=== PATIENT | female | born 1950 | race Caucasian/White ===

== ENCOUNTER 2019-05-10 13:14 | Emergency (ER) | payer MEDICARE ==
[2019-05-10] MEDS ORDERED: ASPIRIN 81 MG CHEWABLE TABLET PO ONE ×2 (13:29→13:30)
[2019-05-10] MEDS ORDERED: NITROGLYCERIN/D5W 50 MG/250 ML ML IV SCH (13:30)
[2019-05-10 13:41] LABS: ABSOLUTE NEUTROPHIL COUNT 6.41; BASO % 0.6 % (0-6); EOS % 1.6 % (0-6); GRAN % 71.1 % (47-80); HEMATOCRIT 46.2 % (35.0-47.0); HEMOGLOBIN 15.9 gm/dl (11.6-16.0); LYMPH % 15.1 % (16-45); MEAN CORPUSCULAR HEMOGLOBIN 33.1 pg (27-33); MEAN CORPUSCULAR HGB CONC 34.4 g/dl (32-36); MONO % 11.6 % (0-9); PLATELET COUNT 345 K/uL (130-400); RED BLOOD COUNT 4.81 M/uL (3.80-5.40); RED CELL DISTRIBUTION WIDTH 14.1 % (11.5-14.5)
[2019-05-10] MEDS ORDERED: HEPARIN SODIUM 1000 UNIT/1 ML 10ML VIAL IVP ONE (13:42)
--- NOTE | 2019-05-10 13:42 | Emergency Department Record ---
History of Present Illness - General Chief complaint: Pain Stated complaint: SHOULDER AND ARM PAIN Time Seen by Provider: 05/10/19 13:25 Mode of Arrival: Ambulatory - History of Present Illness Initial comments: chest pain which started 12:30 pm today one hour ago and she had some intermittent pain at 4 am but the pain went away with ultram. PMH DM, hypertension and RA and no bleeding disorders and no previous cardiac disease Onset/Timin -: Hour(s) Location: Left, Arm, Shoulder History of Same: No Radiation: None Severity scale (1-10): >10 - Related Data Home Medications Medication Instructions Recorded Confirmed Last Taken Carvedilol [Coreg] 6.25 mg PO BID 05/10/19 05/10/19 1 Day Ago ~05/09/19 Celecoxib [Celebrex] 200 mg PO BID 05/10/19 05/10/19 1 Day Ago ~05/09/19 Cholecalciferol (Vitamin D3) 5,000 unit PO DAILY 05/10/19 05/10/19 1 Day Ago [Vitamin D3] ~05/09/19 Cyanocobalamin (Vitamin B-12) 2,500 mcg PO DAILY 05/10/19 05/10/19 1 Day Ago [Vitamin B12] ~05/09/19 Duloxetine HCl [Cymbalta] 60 mg PO DAILY 05/10/19 05/10/19 1 Day Ago ~05/09/19 Losartan Potassium [Cozaar] 25 mg PO DAILY 05/10/19 05/10/19 1 Day Ago ~05/09/19 Metformin ER HCl [Glucophage Xr] 250 mg PO DAILY 05/10/19 05/10/19 1 Day Ago ~05/09/19 Methotrexate Sodium [Trexall] 20 mg PO WEEKLY 05/10/19 05/10/19 1 Day Ago ~05/09/19 Pyridoxine HCl (Vitamin B6) 100 mg PO DAILY 05/10/19 05/10/19 1 Day Ago [Vitamin B-6] ~05/09/19 Semaglutide [Ozempic] 1 mg SQ WEEKLY 05/10/19 05/10/19 1 Day Ago ~05/09/19 Tramadol HCl [Ultram] 50 mg PO QID PRN 05/10/19 05/10/19 1 Day Ago ~05/09/19 Allergies Allergy/AdvReac Type Severity Reaction Status Date / Time Penicillins Allergy RASH Verified 05/10/19 13:34 Travel Screening - Travel/Exposure Within Last 30 Days Have you traveled within the last 30 days?: No - Travel/Exposure Within Last Year Have you traveled outside the [place] in the last year?: No - Additonal Travel Details Have you been exposed to anyone with a communicable illness?: No - Travel Symptoms Symptom Screening: None Review of Systems Reviewed: No additional complaints except as noted below Constitutional: Reports: As per HPI. Denies: Chills, Fever, Malaise, Night sweats, Weakness, Weight change Eyes: Reports: As per HPI. Denies: Eye discharge, Eye pain, Photophobia, Vision change ENT: Reports: As per HPI. Denies: Congestion, Dental pain, Ear pain, Epistaxis, Hearing loss, Throat pain Respiratory: Reports: As per HPI. Denies: Cough, Dyspnea, Hemoptysis, Stridor, Wheezes Cardiovascular: Reports: As per HPI, Chest pain. Denies: Arrhythmia, Dyspnea on exertion, Edema, Murmurs, Orthopnea, Palpitations, Paroxysmal nocturnal dyspnea, Rheumatic Fever, Syncope Endocrine: Reports: As per HPI. Denies: Fatigue, Heat or cold intolerance, Polydipsia, Polyuria Gastrointestinal: Reports: As per HPI. Denies: Abdominal pain, Constipation, Diarrhea, Hematemesis, Hematochezia, Melena, Nausea, Vomiting Genitourinary: Reports: As per HPI. Denies: Abnormal menses, Discharge, Dys pareunia, Dysuria, Frequency, Hematuria, Incontinence, Retention, Urgency Musculoskeletal: Reports: As per HPI. Denies: Arthralgia, Back pain, Gout, Joint swelling, Myalgia, Neck pain Skin: Reports: As per HPI. Denies: Bruising, Change in color, Change in hair/nails, Lesions, Pruritus, Rash Neurological: Reports: As per HPI. Denies: Abnormal gait, Confusion, Headache, Numbness, Paresthesias, Seizure, Tingling, Tremors, Vertigo, Weakness Psychiatric: Reports: As per HPI. Denies: Anxiety, Auditory hallucinations, Depression, Homicidal thoughts, Suicidal thoughts, Visual hallucinations Hematological/Lymphatic: Reports: As per HPI. Denies: Anemia, Blood Clots, Easy bleeding, Easy bruising, Swollen glands Past Medical History - SOCIAL HISTORY Smoking Status: Current every day smoker Alcohol Use: None Drug Use: None - RESPIRATORY Hx Respiratory Disorders: No - CARDIOVASCULAR Hx Cardio Disorders: Yes Comment:: 1980 had work up for CP - NEURO Hx Neuro Disorders: No - GI Hx GI Disorders: Yes Hx Irritable Bowel: Yes (stressed nervous stomache) - Hx Genitourinary Disorders: Yes Comment:: stress incontinence - ENDOCRINE Hx Diabetes: Yes (NIDDM) Hx Thyroid Disease: No - MUSCULOSKELETAL Hx Musculoskeletal Disorders: Yes Hx Arthritis: Yes (RA) - PSYCH Hx Psych Problems: Yes Hx Anxiety: Yes - HEMATOLOGY/ONCOLOGY Hx Hematology/Oncology Disorders: No Hx Anemia: No Hx Cancer: No Family Medical History Any Significant Family History?: Yes Hx Heart Disease: Father Physical Exam - General General Appearance: Alert, Oriented x3, Cooperative, No acute distress - Head Head exam: Normal inspection - Eye Eye exam: Normal appearance, PERRL Pupils: Normal accommodation - ENT ENT exam: Normal exam, Mucous membranes moist, Normal external ear exam, Normal orophraynx, TM's normal bilaterally Ear exam: Normal external inspection. negative: External canal tenderness Nasal Exam: Normal inspection. negative: Discharge, Sinus tenderness Mouth exam: Normal external inspection, Tongue normal Teeth exam: Normal inspection. negative: Dental caries Throat exam: Normal inspection. negative: Tonsillar erythema, Tonsillar exudate - Neck Neck exam: Normal inspection, Full ROM. negative: Tenderness - Respiratory Respiratory exam: Normal lung sounds bilaterally. negative: Respiratory distress - Cardiovascular Cardiovascular Exam: Regular rate, Normal rhythm, Normal heart sounds - GI/Abdominal GI/Abdominal exam: Soft, Normal bowel sounds. negative: Tenderness - Rectal Rectal exam: Deferred - exam: Deferred - Extremities Extremities exam: Normal inspection, Full ROM, Normal capillary refill. negative: Tenderness - Back Back exam: Reports: Normal inspection, Full ROM. Denies: Muscle spasm, Rash noted, Tenderness - Neurological Neurological exam: Alert, Normal gait, Oriented X3, Reflexes normal - Psychiatric Psychiatric exam: Normal affect, Normal mood - Skin Skin exam: Dry, Intact, Normal color, Warm Course Vital Signs 05/10/19 13:18 Temperature 97.4 F L Pulse Rate 71 Respiratory 20 Rate Blood Pressure 183/100 Pulse Ox 100 - Reevaluation(s) Reevaluation #1: discussed case with Dr. Caruso and will transfer by EMS for cath. 05/10/19 13:40 Medical Decision Making - Data Complexity MDM Data: EKG Ordered and/or Reviewed (ST elevation V2 to V5 ) - Lab Data Result diagrams: 05/10/19 13:30 05/10/19 13:30 Disposition Clinical Impression: Myocardial infarction acute Qualifiers: Myocardial infarction type: ST elevation myocardial infarction Involved coronary artery: other anterior wall coronary artery Qualified Code(s): I21.09 - ST elevation (STEMI) myocardial infarction involving other coronary artery of anterior wall Disposition: Acute Care Hospital Transfer Condition: (2) Stable Instructions: Acute Coronary Syndrome (ED) Time of Disposition: 13:45 Quality - Quality Measures Quality Measures: N/A - Blood Pressure Screening Does Patient Have Any of the Following: No, Active Dx of HTN Blood Pressure Classification: Hypertensive Reading Systolic Measurement: 183 Diastolic Measurement: 100 Screening for High Blood Pressure: Patient Exclusion, Hx of HTN [[id number]]
[2019-05-10] MEDS ORDERED: HEPARIN SODIUM/D5W 25,000 UNITS/500 ML BAG IV SCH (13:45)
[2019-05-10 13:50] LABS: BLOOD UREA NITROGEN 10 mg/dL (8-23); CREATININE 0.5 mg/dL (0.5-0.9); EST GLOMERULAR FILTRATION RATE > 60 mL/min
[2019-05-10 13:52] LABS: GLUCOSE,RANDOM 215 mg/dL (74-109)
[2019-05-10 13:53] LABS: PARTIAL THROMBOPLASTIN TIME 29.2 SECONDS (24.5-39.1); PROTHROMBIN TIME (PATIENT) 10.4 SECONDS (9.5-12.1)
[2019-05-10] MEDS ORDERED: ONDANSETRON HCL IV 4 MG/2 ML VIAL IVP ONE (14:01)
--- NOTE | 2019-05-12 06:39 | RADIOLOGY REPORT ---
EXAM: CHEST, SINGLE VIEW HISTORY: CHEST PAIN. TECHNIQUE: A single frontal view of the chest was obtained. Comparison: 07/03/18. FINDINGS: Frontal view of the chest shows fairly well expanded and clear lungs. The cardiomediastinal silhouette is stable, there is unfolding of the thoracic aorta. No pleural effusion or pneumothorax. The bony structures are unremarkable. IMPRESSION: NO ACUTE ABNORMALITIES IN THE CHEST. JOB NUMBER: [id number] [facility]
== END 2019-05-10 13:57 | disposition short-term general hospital (02) ==
LOC: ER 13:14
DX: I21.09 ST elevation (STEMI) myocardial infarction involving other coronary artery of anterior wall (principal); M25.512 Pain in left shoulder; M06.9 Rheumatoid arthritis, unspecified; I10 Essential (primary) hypertension; E11.9 Type 2 diabetes mellitus without complications; F17.210 Nicotine dependence, cigarettes, uncomplicated
CPT/HCPCS: 99285 ×2; 96374; 96375; 85025; 85730; 85610; 80048; 84484; 71045; 93005; 93010; J2405

== ENCOUNTER 2019-11-10 06:57 | Day surgery (SDC) | payer OTHER, MEDICARE ==
[~2019-11-10 06:57] MED LIST: ACETAMINOPHEN 1,000 MG/100 ML BTL IVPB ONE; FAMOTIDINE 20MG TABLET PO ONE; MECLIZINE 25 MG TABLET PO ONE; METOCLOPRAMIDE 10 MG TABLET PO ONE
[2019-11-10] MEDS ORDERED: SEVOFLURANE 250 ML INH ONE (06:58)
[2019-11-10] MEDS ORDERED: FENTANYL PF 100MCG/2ML VIAL IV ONE (06:58)
[2019-11-10] MEDS ORDERED: KETOROLAC 30 MG/ML VIAL IVP ONE (06:58)
[2019-11-10] MEDS ORDERED: MIDAZOLAM HCL 2MG/2ML VIAL IV ONE (06:58)
[2019-11-10] MEDS ORDERED: LIDOCAINE 2% MDV (20MG/ML) 20ML VIAL IV ONE (06:58)
[2019-11-10] MEDS ORDERED: PROPOFOL 10 MG/ML VIAL IV ONE (06:58)
[2019-11-10] MEDS ORDERED: ONDANSETRON HCL IV 4 MG/2 ML VIAL IVP ONE (06:58)
[2019-11-10] MEDS ORDERED: SUGAMMADEX SODIUM 200 MG/2 ML VIAL IV ONE (06:58)
[2019-11-10 07:10] LABS: ABSOLUTE NEUTROPHIL COUNT 7.02; BASO % 0.4 % (0-6); EOS % 0.9 % (0-6); GRAN % 73.4 % (47-80); HEMATOCRIT 46.8 % (35.0-47.0); LYMPH % 17.7 % (16-45); MEAN CELL VOLUME 95.3 fl (81-97); MEAN CORPUSCULAR HEMOGLOBIN 32.6 pg (27-33); MEAN CORPUSCULAR HGB CONC 34.2 g/dl (32-36); MONO % 7.6 % (0-9); PLATELET COUNT 320 K/uL (130-400); RED BLOOD COUNT 4.91 M/uL (3.80-5.40); RED CELL DISTRIBUTION WIDTH 13.7 % (11.5-14.5); WHITE BLOOD COUNT W/O DIFF 9.6 K/uL (4.2-12.2)
[2019-11-10 07:26] LABS: BLOOD UREA NITROGEN 10 mg/dL (8-23); CREATININE 0.7 mg/dL (0.5-0.9); EST GLOMERULAR FILTRATION RATE > 60 mL/min; GLUCOSE,RANDOM 132 mg/dL (74-109)
[2019-11-10] MEDS ORDERED: RINGERS SOLUTION,LACTATED 1,000 ML IV ONE (07:38)
[2019-11-10] MEDS ORDERED: BUPIVACAINE 0.25% W/EPI MPF 30ML VIAL SQ ONE ×2 (08:58)
--- NOTE | 2019-11-11 09:11 | Operative Note ---
DATE OF SURGERY: 11/10/2019 SURGEON: Varun Dang DO PREOPERATIVE DIAGNOSIS: Symptomatic biliary dyskinesia. POSTOPERATIVE DIAGNOSIS: Symptomatic biliary dyskinesia. OPERATION: Laparoscopic cholecystectomy. INDICATION: The patient is a 69-year-old female who is having ongoing right subcostal postprandial pain. She had a mildly impaired ejection fraction on her HIDA scan. We did discuss cholecystectomy versus medical management. She desired surgical intervention. Risks include but are not limited to bleeding, infection, ductal injury, possible conversion to open, postoperative bile leak. She understood this fully. PROCEDURE: Thereafter, consent was signed and questions answered. She was taken to the operating room and placed in a supine position. General anesthesia was administered per the department of anesthesia. The patient's abdomen was prepped and draped in the usual sterile fashion. The infraumbilical region was anesthetized with a total of 5 mL of 0.25% Sensorcaine with epinephrine. A 2 cm infraumbilical incision was made. This was carried down to the anterior rectus fascia. This was incised. Madhuri clamps were placed on the fascial edges and brought up into the wound. Stay sutures of 0 Vicryl were placed. Posterior rectus sheath was identified and incised. The peritoneal cavity was entered bluntly. At this time, a 10 mm blunt Antonia port was placed. Adequate pneumoperitoneum was established. The patient was rotated into reverse Trendelenburg with rotation to the left. Additional 5 mm epigastric and two 5 mm right subcostal ports were placed. The gallbladder was identified. It was densely covered with adhesions anteriorly. This was lifted anteriorly. The adhesions were taken down with a combination of blunt dissection and KIRILL Harmonic. This cleared the anterior aspect off. At this time, the gallbladder was retracted in a cephalad and lateral direction opening up the angle of Calot. The hepatocystic triangle was thoroughly dissected out. There was no aberrant anatomy, no posterior ductal structures. The cystic duct and cystic artery were clearly identified. I did release the distal half of the gallbladder from the liver plate as well. This did elongate our retroductal window. The cystic duct and cystic artery were clearly identified. Each one was doubly clipped and cut in a standard fashion. Gallbladder was then taken off the liver bed with KIRILL Harmonic. This was brought out through the umbilical port. Right upper quadrant was rechecked and found to be hemostatic. No bleeding. No bile leaking. No bowel injury noted. The patient was leveled out. The pneumoperitoneum was released. All ports were removed. The fascia was closed with 0 Vicryl in a [id number] fashion. The skin at all ports was closed with 4-0 Vicryl. The patient was taken to the recovery room in stable condition. FINDINGS AT THE TIME OF SURGERY: Chronic cholecystitis. MTDD
== END 2019-11-10 10:03 | disposition home or self-care (01) ==
LOC: SUR 06:57
PROVIDERS: ATTEND Surgery
DX: K82.8 Other specified diseases of gallbladder (principal); E11.9 Type 2 diabetes mellitus without complications; M06.9 Rheumatoid arthritis, unspecified; F17.210 Nicotine dependence, cigarettes, uncomplicated; I21.3 ST elevation (STEMI) myocardial infarction of unspecified site; Z95.5 Presence of coronary angioplasty implant and graft
CPT/HCPCS: 80048; 85025; J1885; J2405; J3490; J7120